=== PATIENT | female | born 1965 | race Caucasian/White ===

== ENCOUNTER → 2018-10-30 | Outpatient (CLI) | payer BC ==
--- NOTE | 2018-10-31 14:25 | US ---
EXAM DESCRIPTION: Breast,Right: Ultrasound CLINICAL HISTORY: 53 yearsFemaleABNORMAL MAMMO. Focal asymmetry in the anterior right breast. Retromuscular saline breast implant. COMPARISON: Diagnostic right breast digital tomosynthesis on this visit. Bilateral screening digital breast tomosynthesis 10/17/2018. TECHNIQUE: Transcutaneous scanning of the right breast utilizing fernandez-scale and Doppler modes. Scanning performed by the trimmer machine operator with Dr. Burks observation. FINDINGS: Scanning of the medial right breast. Mostly fibroglandular echotexture with minimal fatty replacement. Implant capsule is intact where seen. No distinct cyst or dominant solid mass. No parenchymal edema or large calcifications. No overlying skin changes. Normal vascularity. IMPRESSION: 1. Bi-Rads Category 2: Benign. 2. Please refer to diagnostic right breast digital tomosynthesis examination and report on this visit. The FINDINGS and the FOLLOW-UP plan were reviewed in person with the patient after the examination. Written communication explaining the IMPRESSION and FOLLOW-UP will be mailed to the patient and referring care provider. Electronically signed by: uCrtis Burks MD 10/31/2018 2:22 PM CDT
--- NOTE | 2018-10-31 14:34 | MAM ---
EXAM DESCRIPTION: 3D Diagnostic, Right: Digital Mammography CLINICAL HISTORY: 53 yearsFemaleABNORMAL MAMMO focal asymmetry medial right breast.. Patient has bilateral saline intramuscular implants. COMPARISON: prior. No prior reports available.. TECHNIQUE: Right breast LM projection full-field images, digital mammographic tomosynthesis, with Richard implant displacement technique. Right breast Spot compression MLO and CC projections with Richard implant displacement technique. CAD not available. FINDINGS: The breast parenchymal density pattern is: Heterogeneously dense breast tissue, which may obscure small masses. No skin thickening or nipple retraction tomosynthesis again shows suggestion of focal asymmetry 4:00 position. Not seen on the spot compression images. Ultrasound: Scanning of the medial right breast. Mostly fibroglandular echotexture with minimal fatty replacement. Implant capsule is intact where seen. No distinct cyst or dominant solid mass. No parenchymal edema or large calcifications. No overlying skin changes. Normal vascularity. IMPRESSION: Benign exam. BIRAD CATEGORY: 2 BENIGN FINDINGS. RECOMMENDATIONS: FOLLOW UP: Return to routine digital bilateral mammographic screening, one year interval from September 2018. The FINDINGS and the FOLLOW-UP plan were reviewed in person with the patient after the examination. Written communication explaining the IMPRESSION and FOLLOW-UP will be mailed to the patient and referring care provider. According to the [employer], yearly mammograms are recommended starting at age 40 and continuing as long as a woman is in good health. Any breast change noted on a breast self-exam should be reported promptly to the patient's healthcare provider. Breast MRI is recommended for women with an approximately 20-25% or greater lifetime risk of breast cancer, including women with a strong family history of breast or ovarian cancer and women who have been treated for Hodgkin's disease. A negative mammographic report should not delay tissue diagnosis in patients with significant clinical history or physical findings. Extremely dense breast tissue limits the sensitivity of digital mammography. Electronically signed by: Curtis Burks MD 10/31/2018 2:31 PM CDT
== END ==
LOC: MAMMO 14:13
PROVIDERS: ATTEND Family Medicine
DX: R92.8 Other abnormal and inconclusive findings on diagnostic imaging of breast (principal)
CPT/HCPCS: 76641; 77065; G0279

== ENCOUNTER → 2020-03-18 | Outpatient (CLI) | payer BC | LOC: GMAM 10:48 | PROVIDERS: ATTEND Family Medicine | DX: E07.89 Other specified disorders of thyroid (principal) ==